=== PATIENT | female | born 1990 ===

== ENCOUNTER 2017-12-21 01:03 | Emergency (ER) | payer SELFPAY ==
--- NOTE | 2017-12-21 01:06 | ER Report ---
History and Physical Time Seen By MD: 01:05 HPI/NANCY CHIEF COMPLAINT: Altered mental status, alcohol intoxication, vomiting, moaning HISTORY OF PRESENT ILLNESS: 27-year-old female brought in by EMS. He was found down in a public place. She was moaning and vomiting. She appears grossly alcohol intoxicated. Evidence of a head injury. EMS established a peripheral IV and gave Zofran 4 mg IV. REVIEW OF SYSTEMS: Respiratory: No cough, no dyspnea. Cardiovascular: No chest pain, no palpitations. Gastrointestinal: As above Musculoskeletal: No back pain. Allergies: Uncoded Allergies: BANDAID (Allergy, Unknown, 12/21/17) Home Meds Active Scripts Ondansetron (ZOFRAN ODT) 4 Mg Tab.rapdis, 4 MG PO every 6 hours PRN for NAUSEA/VOMITING, #10 TAB TAKE 1 TABLET BY MOUTH EVERY 12 HOURS Prov:BETTY VERDUZCO DO 12/21/17 Reviewed Nurses Notes: Yes Old Medical Records Reviewed: Yes Constitutional Vital Sign - Last 24 Hours 12/21/17 12/21/17 12/21/17 12/21/17 01:05 01:05 01:18 01:30 Temp 98.7 Pulse 67 81 Resp 24 B/P (MAP) 105/75 97/85 (89) 98/72 (81) Pulse Ox 98 95 O2 Delivery Room Air 12/21/17 12/21/17 12/21/17 12/21/17 01:33 01:48 02:03 02:06 Pulse 61 54 53 B/P (MAP) 81/71 (74) Pulse Ox 93 100 99 12/21/17 12/21/17 12/21/17 12/21/17 02:18 02:30 02:33 02:48 Pulse 53 49 47 B/P (MAP) 90/76 (81) Pulse Ox 100 99 100 12/21/17 12/21/17 12/21/17 12/21/17 02:53 03:00 03:08 03:23 Pulse 52 58 61 B/P (MAP) 96/76 (83) Pulse Ox 100 100 100 12/21/17 12/21/17 12/21/17 12/21/17 03:30 03:38 03:53 04:00 Pulse 57 62 B/P (MAP) 91/76 (81) 99/73 (82) Pulse Ox 100 99 12/21/17 04:08 Pulse 65 Pulse Ox 94 Physical Exam General Appearance: The patient is alert, has no immediate need for airway protection and no current signs of toxicity., Heavy odor of EtOH, patient covered in emesis on her clothes. Signs stable, pulse ox normal, moaning on palpation of the head and neck reveal no tenderness or trauma HEENT Pupils equal and round no injection. TMs normal, oropharynx with heavy odor of EtOH, no dental trauma Respiratory: Chest is non tender, lungs are clear to auscultation. Cardiac: regular rate and rhythm Gastrointestinal: Abdomen is soft and non tender, no masses, bowel sounds normal. Musculoskeletal: Neck: Neck is supple and non tender. Extremities have full range of motion and are non tender. Skin: No rashes or lesions. DIFFERENTIAL DIAGNOSIS: After history and physical exam differential diagnosis was considered for alcohol intoxication, polysubstance abuse, fpc clearance Medical Decision Making Data Points Result Diagram: 12/21/17 0108 12/21/17 0108 Laboratory Hematology Test 12/21/17 01:08 Red Blood Count 4.54 M/uL (4.17-5.56) Mean Corpuscular Volume 92.7 fL (80.0-96.0) Mean Corpuscular Hemoglobin 32.6 pg (26.0-33.0) Mean Corpuscular Hemoglobin Concent 35.2 g/dL (32.0-36.0) Red Cell Distribution Width 12.7 % (11.5-14.5) Mean Platelet Volume 8.8 fL (7.2-11.1) Neutrophils (%) (Auto) 28.3 % (39.4-72.5) Lymphocytes (%) (Auto) 64.4 % (17.6-49.6) Monocytes (%) (Auto) 6.1 % (4.1-12.4) Eosinophils (%) (Auto) 1.1 % (0.4-6.7) Basophils (%) (Auto) 0.1 % (0.3-1.4) Nucleated RBC Relative Count (auto) 0.1 /100WBC Neutrophils # (Auto) 2.6 K/uL (2.0-7.4) Lymphocytes # (Auto) 5.8 K/uL (1.3-3.6) Monocytes # (Auto) 0.5 K/uL (0.3-1.0) Eosinophils # (Auto) 0.1 K/uL (0.0-0.5) Basophils # (Auto) 0.0 K/uL (0.0-0.1) Nucleated RBC Absolute Count (auto) 0.01 K/uL Peripheral Blood Smear Yes Y/N Sodium Level 140 mmol/L (137-145) Potassium Level 2.6 mmol/L (3.5-5.0) Chloride Level 104 mmol/L (98-107) Carbon Dioxide Level 20 mmol/L (22-31) Blood Urea Nitrogen 11 mg/dl (7-18) Creatinine 0.80 mg/dl (0.52-1.04) Glomerular Filtration Rate Calc > 60.0 Random Glucose 97 mg/dl (75-110) Calcium Level 9.2 mg/dl (8.4-10.2) Total Bilirubin 0.5 mg/dl (0.2-1.3) Aspartate Amino Transf (AST/SGOT) 30 U/L (0-35) Alanine Aminotransferase (ALT/SGPT) 20 U/L (0-56) Alkaline Phosphatase 46 U/L (0-126) Total Protein 7.4 g/dl (6.3-8.2) Albumin 4.7 g/dl (3.5-5.0) Serum Alcohol 213 mg/dl Chemistry Test 12/21/17 01:08 White Blood Count 9.0 k/uL (4.5-11.0) Red Blood Count 4.54 M/uL (4.17-5.56) Hemoglobin 14.8 g/dL (12.0-16.0) Hematocrit 42.1 % (34.0-47.0) Mean Corpuscular Volume 92.7 fL (80.0-96.0) Mean Corpuscular Hemoglobin 32.6 pg (26.0-33.0) Mean Corpuscular Hemoglobin Concent 35.2 g/dL (32.0-36.0) Red Cell Distribution Width 12.7 % (11.5-14.5) Platelet Count 246 K/uL (150-450) Mean Platelet Volume 8.8 fL (7.2-11.1) Neutrophils (%) (Auto) 28.3 % (39.4-72.5) Lymphocytes (%) (Auto) 64.4 % (17.6-49.6) Monocytes (%) (Auto) 6.1 % (4.1-12.4) Eosinophils (%) (Auto) 1.1 % (0.4-6.7) Basophils (%) (Auto) 0.1 % (0.3-1.4) Nucleated RBC Relative Count (auto) 0.1 /100WBC Neutrophils # (Auto) 2.6 K/uL (2.0-7.4) Lymphocytes # (Auto) 5.8 K/uL (1.3-3.6) Monocytes # (Auto) 0.5 K/uL (0.3-1.0) Eosinophils # (Auto) 0.1 K/uL (0.0-0.5) Basophils # (Auto) 0.0 K/uL (0.0-0.1) Nucleated RBC Absolute Count (auto) 0.01 K/uL Peripheral Blood Smear Yes Y/N Glomerular Filtration Rate Calc > 60.0 Calcium Level 9.2 mg/dl (8.4-10.2) Total Bilirubin 0.5 mg/dl (0.2-1.3) Aspartate Amino Transf (AST/SGOT) 30 U/L (0-35) Alanine Aminotransferase (ALT/SGPT) 20 U/L (0-56) Alkaline Phosphatase 46 U/L (0-126) Total Protein 7.4 g/dl (6.3-8.2) Albumin 4.7 g/dl (3.5-5.0) Serum Alcohol 213 mg/dl Toxicology Test 12/21/17 01:08 Serum Alcohol 213 mg/dl ED Course/Re-evaluation Clinical Indication for ER IV: Hydration, IV Access ED Course Patient was admitted to an examination room. H&P was done. The differential diagnoses was considered. Patient appears grossly alcohol intoxicated. She has persistent vomiting despite 8 of Zofran administered by EMS prior to arrival. She's given Phenergan 12.5 mg IV and normal saline 1 L bolus. Blood alcohol returns at 213. She also was noted to have low potassium of 2.6. Patient's monitored for several hours. She appears euphoric. There is a suspicion she may have taken something else. Patient be discharged home in the care of her friends with [facility]. Her testing was replaced with 60 mEq of extended release potassium by mouth prior to discharge. 12/21/2017 5:59:30 am patient finally awake, making sense alert and oriented 3. She does not recall anything that occurred earlier. She denies any other drug ingestions besides alcohol. Decision to Disposition Date: Dec 21, 2017 Decision to Disposition Time: 01:44 Depart Departure Latest Vital Signs Vital Signs Date Time Temp Pulse Resp B/P (MAP) Pulse Ox O2 Delivery O2 Flow Rate FiO2 12/21/17 04:08 65 94 12/21/17 04:00 99/73 (82) 12/21/17 01:05 98.7 24 Room Air Impression: Primary Impression: Alcohol poisoning Additional Impressions: Hypokalemia Vomiting Condition: Improved Disposition: HOME OR SELF-CARE Referrals: GUDELIA ESPITIA MD New Scripts Ondansetron (ZOFRAN ODT) 4 Mg Tab.rapdis 4 MG PO every 6 hours PRN for NAUSEA/VOMITING, #10 TAB TAKE 1 TABLET BY MOUTH EVERY 12 HOURS Prov: BETTY VERDUZCO DO 12/21/17 Patient Instructions: Alcohol Intoxication (ED) Additional Instructions: Stopped raking alcohol to excess Follow-up with your primary care if unimproved in 3-5 days. Problem Qualifiers Primary Impression: Alcohol poisoning Encounter type: initial encounter Injury intent: accidental or unintentional Qualified Codes: T51.91XA - Toxic effect of unspecified alcohol, accidental (unintentional), initial encounter Additional Impressions: Vomiting Vomiting type: unspecified Vomiting Intractability: unspecified Nausea presence: unspecified Qualified Codes: R11.10 - Vomiting, unspecified BETTY VERDUZCO DO Dec 21, 2017 01:06
[2017-12-21] MEDS ORDERED: NS(*) 0.9% 1000 ML BAG 1,000 ML IV ONE (01:10)
[2017-12-21] MEDS ORDERED: PROMETHAZINE 25 MG/ML 1 ML AMP IVP ONE (01:20)
[2017-12-21 01:28] LABS: PLATELET COUNT, AUTOMATED 246 K/uL (150-450)
[2017-12-21] MEDS ORDERED: ONDA4TAB PO (02:06)
[2017-12-21] MEDS ORDERED: ONDANSETRON 4 MG ODT TH SL ONE (02:20)
[2017-12-21] MEDS ORDERED: POTASSIUM CHL 20 MEQ TABCR PO ONE (02:20)
[2017-12-21 06:00] VITALS: BP 110/77
== END 2017-12-21 06:10 | disposition home or self-care (01) ==
LOC: ER 01:06
DX: T51.91XA Toxic effect of unspecified alcohol, accidental (unintentional), initial encounter (principal); Y90.7 Blood alcohol level of 200-239 mg/100 ml; E87.6 Hypokalemia; R11.10 Vomiting, unspecified
CPT/HCPCS: 80320; 85025; 96361; 96374; 99283; J2550; J7030; S0119; 82040; 82247; 82310; 82374; 82435; 82565; 82947; 84075; 84132; 84155; 84295; 84450; 84460; 84520

== ENCOUNTER → 2017-12-21 | Outpatient (CLI) | payer SELFPAY ==
[~2017-12-21] MED LIST: ONDA4TAB PO
== END ==
LOC: AMB 00:49
PROVIDERS: ATTEND Nurse Practitioner
DX: R40.4 Transient alteration of awareness (principal); F10.129 Alcohol abuse with intoxication, unspecified; R11.11 Vomiting without nausea
CPT/HCPCS: A0425; A0427